=== PATIENT | male | born 1965 | race Caucasian/White ===

== ENCOUNTER 2018-03-25 17:44 | Emergency (ER) | payer SELFPAY ==
[2018-03-25 17:52] VITALS: BP 125/82
--- NOTE | 2018-03-25 18:05 | EDPHY ---
H & P Stated Complaint: Injury to R ankle; BCA Time Seen by Provider: 03/25/18 18:00 HPI/ROS: CHIEF COMPLAINT: Right ankle injury HISTORY OF PRESENT ILLNESS: The patient presents the ED after he sustained a right ankle injury while mountain biking today. The patient had a flexion type injury involving his right ankle. He noticed immediate pain and swelling. He has been unable to weightbear. The patient denies any associated pain in his right knee,, hip or back. He did sustain a superficial abrasion to his left knee. He has no limited range of motion or pain in that extremity. The patient did not strike his head or lose consciousness. He has no complaints of chest pain or shortness of breath. The patient denies significant past medical history. He takes no regular medications. REVIEW OF SYSTEMS: A comprehensive 10 point review of systems is otherwise negative aside from elements mentioned in the history of present illness. Source: Patient Exam Limitations: No limitations - Personal History Current Tetanus Diphtheria and Acellular Pertussis (TDAP): Yes - Medical/Surgical History Hx Diabetes: No Other PMH: healthy - Social History Smoking Status: Never smoked - Physical Exam Exam: General Appearance: Alert, no distress Head: Atraumatic Respiratory: No chest wall tender, no subcutaneous air, lungs clear bilaterally Cardiovascular: Regular rate and rhythm Abdomen: Abdomen is soft and nontender, pelvis stable Skin: Superficial abrasion to bilateral knees Back: No midline T/L/S pain Extremities: Tenderness to palpation right medial and lateral malleolus with associated right ankle effusion. Neurological: GCS 15, 5/5 strength noted all 4 extremities, normal sensory exam all 4 extremities Constitutional: Initial Vital Signs Temperature (C) 36.8 C 03/25/18 17:51 Heart Rate 67 03/25/18 17:51 Respiratory Rate 16 03/25/18 17:51 Blood Pressure 125/82 H 03/25/18 17:51 O2 Sat (%) 94 03/25/18 17:51 O2 Delivery Mode Room Air Allergies/Adverse Reactions: No Allergies [NKDA] Allergy (Verified 03/25/18 17:51) Home Medications: Medication Instructions Recorded NK [No Known Home Meds] 03/25/18 Medical Decision Making - Diagnostics Imaging Results: Imaging Impressions Ankle X-Ray 03/25/18 17:52 Impression: Nondisplaced oblique distal right fibular fracture compatible with Albrecht B ankle injury. Small chip avulsion from the dorsal aspect of the talar neck. ED Course/Re-evaluation: The patient presents to the ED for evaluation of right ankle pain. The patient has no additional injury noted on exam. X-ray does demonstrate a right distal fibular fracture. There is no widening of the syndesmosis. Patient has been placed in a Marx boot and given crutches. He has been referred to our on-call orthopedic surgeon to schedule a follow-up visit with tomorrow. He will be nonweightbearing until that time. Plan for Tylenol for pain control. Patient will ice and elevate the extremity. The patient will follow up with Dr. Lozoya from Orthopedic surgery. He is discharged home with a prescription for Percocet. Patient's abrasions were cleaned in the emergency department. Differential Diagnosis: Differential diagnosis considered includes fracture, sprain, dislocation - Data Points Medications Given: Discontinued Medications Oxycodone/Acetaminophen (Percocet 5/325) 2 tab PO EDNOW ONE Stop: 03/25/18 18:31 Last Admin: 03/25/18 18:42 Dose: 1 tab Departure - Departure Disposition: Home, Routine, Self-Care Clinical Impression: Abrasion of knee, bilateral Fracture of distal fibula Qualifiers: Encounter type: initial encounter Fracture type: closed Laterality: right Condition: Good Instructions: Ankle Fracture (ED), Oxycodone/Acetaminophen (By mouth) Additional Instructions: 1. Marx boot until seen in follow-up by Orthopedic surgery. No weight on your right leg until seen by orthopedic surgeon. 2. Tylenol as needed for pain. Ice 20 min at a time 3 to 4 times a day for the next several days. Please elevate the extremity as much as possible. 3. Please contact the orthopedic surgeon you have been referred to to schedule a follow-up visit on Monday. 4. Percocet as needed for severe pain. Do not take more than 3 g of acetaminophen a day. There is acetaminophen in both Percocet and Tylenol. Referrals: Trevon Lozoya MD [Medical Doctor] - As per Instructions
[2018-03-25] MEDS: OXYCODONE/APAP 5/325 TAB PO ONE ×2 (18:39→18:42)
[2018-03-25] MEDS ORDERED: OXYCODONE/APAP 5/325MG PREPACK#4 BTL TAKEHOME ONE (19:06)
== END 2018-03-25 19:24 | disposition home or self-care (01) ==
DX: S82.434A Nondisplaced oblique fracture of shaft of right fibula, initial encounter for closed fracture (principal); S99.911A Unspecified injury of right ankle, initial encounter; S80.211A Abrasion, right knee, initial encounter; S80.212A Abrasion, left knee, initial encounter; V18.0XXA Pedal cycle driver injured in noncollision transport accident in nontraffic accident, initial encounter; Y93.55 Activity, bike riding; Y92.828 Other wilderness area as the place of occurrence of the external cause; Y99.9 Unspecified external cause status
CPT/HCPCS: L4386